=== PATIENT | female | born 2000 | race Caucasian/White ===

== ENCOUNTER 2018-03-10 19:00 | Emergency (ER) | payer OTHER ==
[~2018-03-10] VITALS: Ht 152.4 cm; Wt 65.8 kg
[2018-03-10] MEDS ORDERED: ONDANSETRON HCL4 MG (19:10)
[2018-03-10] MEDS ORDERED: CEPHALEXIN500 M1 (19:10)
== END 2018-03-10 21:20 | disposition home or self-care (01) ==
LOC: ER 19:00
DX: O71.3 Obstetric laceration of cervix (principal); Z34.02 Encounter for supervision of normal first pregnancy, second trimester

== ENCOUNTER 2018-04-11 15:15 | Outpatient (CLI) | payer OTHER ==
[~2018-04-11 15:15] MED LIST: CEPHALEXIN500 M1; ONDANSETRON HCL4 MG
[2018-04-11] MEDS ORDERED: PRENATAL TABLE1 EAC1 PO (15:29)
[2018-04-11] MEDS ORDERED: ZYRTEC10 MG PO (15:29)
[2018-04-12] MEDS ORDERED: KEFLEX500 MG PO (22:35)
== END 2018-04-12 22:00 | disposition home or self-care (01) ==
LOC: OBS/DEL 15:15
DX: O23.43 Unspecified infection of urinary tract in pregnancy, third trimester (principal); Z34.02 Encounter for supervision of normal first pregnancy, second trimester

== ENCOUNTER 2018-08-09 16:31 | Inpatient (IN) | payer OTHER ==
[~2018-08-09] VITALS: Ht 160 cm; Wt 78.5 kg
[~2018-08-09 16:31] MED LIST changes: +KEFLEX500 MG PO; +PRENATAL TABLE1 EAC1 PO; +ZYRTEC10 MG PO
[2018-08-09] MEDS ORDERED: PRENATAL TABLE1 EAC1 PO (17:09)
== END 2018-08-12 19:41 | DRG 807 ==
LOC: LDR 16:31 → OB/GYN 08-10 10:34
PROC: 10907ZC Drainage of Amniotic Fluid, Therapeutic from Products of Conception, Via Natural or Artificial Opening (ICD-10-PCS; 2018-08-09)
PROC: 4A1HXCZ Monitoring of Products of Conception, Cardiac Rate, External Approach (ICD-10-PCS; 2018-08-09)
PROC: 10E0XZZ Delivery of Products of Conception, External Approach (ICD-10-PCS; principal; 2018-08-10)
DX: O80 Encounter for full-term uncomplicated delivery (principal); Z37.0 Single live birth; Z3A.39 39 weeks gestation of pregnancy

== ENCOUNTER → 2020-11-03 | Outpatient (CLI) | payer OTHER | END | disposition home or self-care (01) | LOC: PRENATAL 10-26 10:30 | PROVIDERS: ATTEND Obstetrics & Gynecology Maternal & Fetal Medicine | DX: O35.0XX1 Maternal care for (suspected) central nervous system malformation in fetus, fetus 1 (principal); O35.3XX1 Maternal care for (suspected) damage to fetus from viral disease in mother, fetus 1; O98.512 Other viral diseases complicating pregnancy, second trimester; Z36.89 Encounter for other specified antenatal screening; Z3A.21 21 weeks gestation of pregnancy ==